=== PATIENT | female | born 1960 | race Hispanic/Latino ===

== ENCOUNTER 2023-11-16 10:51 | Inpatient (IN) | payer BC ==
[~2023-11-16] VITALS: Ht 157.5 cm; Wt 62.1 kg
[2023-11-16] MEDS: LIDOCAINE HCL 1% LOCAL INJ 20 ML VIAL INJ ONE (12:58)
[2023-11-16] MEDS: Morphine 4mg INJECTION 4 MG/ML INJ IV STA (12:59)
[2023-11-16] MEDS: SODIUM CHLORIDE 0.9% 1000ML 1,000 ML IV STA (12:59)
[2023-11-16] MEDS: ONDANSETRON HCL INJ 2MG/ML 2ML 2 MG/ML VIAL IV STA (12:59)
[2023-11-16 13:10] LABS: BASOPHILS % 0.4 % (0.0-1.0); EOSINOPHILS # (AUTO) 0.1 (0.0-0.4); EOSINOPHILS % 0.5 % (0.0-6.0); HEMATOCRIT 37.8 % (34.2-44.1); HEMOGLOBIN 13.3 g/dL (12.0-16.0); LYMPHOCYTES # (AUTO) 3.4 (1.0-3.2); LYMPHOCYTES % 35.3 % (18.0-39.1); MEAN CORPUSCULAR HEMOGLOBIN 31.4 pg (28-32); MEAN CORPUSCULAR HGB CONC 35.2 g/dL (31-35); MEAN CORPUSCULAR VOLUME 89.4 fL (81-99); MONOCYTES # (AUTO) 0.6 (0.2-0.8); MONOCYTES % 6.2 % (4.4-11.3); NEUTROPHILS # (AUTO) 5.5 (2.1-6.9); NEUTROPHILS % 57.4 % (38.7-80.0); PLATELET COUNT 289 x10e3/uL (140-360); RED BLOOD COUNT 4.23 x10e6/uL (3.6-5.1); RED CELL DISTRIBUTION WIDTH 11.9 % (11.7-14.4); WHITE BLOOD COUNT 9.55 x10e3/uL (4.8-10.8)
[2023-11-16 13:25] LABS: INR 0.96
[2023-11-16 13:26] LABS: PARTIAL THROMBOPLASTIN TIME 28.1 seconds (23.8-35.5)
[2023-11-16 13:35] LABS: ALBUMIN 3.8 g/dL (3.5-5.0); ALBUMIN/GLOBULIN RATIO 0.9 (0.8-2.0); ANION GAP 15.4 mmol/L (8-16); BILIRUBIN,TOTAL 0.5 mg/dL (0.2-1.2); CALCIUM 9.9 mg/dL (8.4-10.2); CREATININE, SERUM 0.63 mg/dL (0.57-1.11); MAGNESIUM 1.6 MG/DL (1.3-2.1); TOTAL PROTEIN 8.1 g/dL (6.5-8.1)
[2023-11-16 13:40] LABS: POTASSIUM 3.4 mmol/L (3.5-5.1)
[2023-11-16 15:26] LABS: BODY FLUID APPEARANCE CLOUDY; BODY FLUID COLOR YELLOW; BODY FLUID TYPE SYNOVIAL
[2023-11-16 15:34] LABS: RBC,BODY FLUID 1000 cells/uL; WBC,BODY FLUID 14562 cells/uL
[2023-11-16] MEDS: SODIUM CHLORIDE 0.9% 1000ML 1,000 ML IV SCH (16:11)
[2023-11-16 16:12] VITALS: BP 132/88; O2SAT 98
[2023-11-16 16:20] VITALS: BP 132/88; O2SAT 98
[2023-11-16 16:33] VITALS: BP 144/89; PULSE 95; RESP 18; TEMP 98.3; O2SAT 100
[2023-11-16 19:00] LABS: LYMPHOCYTES,BODY FLUID 1 %; MONO/MACROPHG,BODY FLUID 1 %; NEUTROPHILS,BODY FLUID 98 %; TOTAL CELLS COUNTED (DIFF) 100
[2023-11-16 20:19] VITALS: BP 128/74; PULSE 96; RESP 17; TEMP 98.6; O2SAT 100
[2023-11-16 23:51] VITALS: BP 128/74; PULSE 96; RESP 17; TEMP 98.6; O2SAT 100
[2023-11-17] VITALS (8 sets, daily range): BP systolic 119–138; BP diastolic 66–83; PULSE 84–91; RESP 16–18; TEMP 98.3–99.5; O2SAT 98–100
[2023-11-17] MEDS: Morphine 4mg INJECTION 4 MG/ML INJ IV PRN (01:01)
[2023-11-17] MEDS: ONDANSETRON HCL INJ 2MG/ML 2ML 2 MG/ML VIAL IV PRN (01:02)
[2023-11-17 07:14] LABS: BASOPHILS % 0.4 % (0.0-1.0); EOSINOPHILS % 0.4 % (0.0-6.0); HEMATOCRIT 35.5 % (34.2-44.1); HEMOGLOBIN 11.6 g/dL (12.0-16.0); LYMPHOCYTES # (AUTO) 2.7 (1.0-3.2); LYMPHOCYTES % 30.2 % (18.0-39.1); MEAN CORPUSCULAR HEMOGLOBIN 30.4 pg (28-32); MEAN CORPUSCULAR HGB CONC 32.7 g/dL (31-35); MEAN CORPUSCULAR VOLUME 93.2 fL (81-99); MONOCYTES # (AUTO) 0.7 (0.2-0.8); MONOCYTES % 8.3 % (4.4-11.3); NEUTROPHILS # (AUTO) 5.4 (2.1-6.9); NEUTROPHILS % 60.4 % (38.7-80.0); PLATELET COUNT 251 x10e3/uL (140-360); RED BLOOD COUNT 3.81 x10e6/uL (3.6-5.1)
[2023-11-17 07:54] LABS: ALBUMIN/GLOBULIN RATIO 0.9 (0.8-2.0); ANION GAP 11.9 mmol/L (8-16); BILIRUBIN,TOTAL 0.5 mg/dL (0.2-1.2); CALCIUM 8.5 mg/dL (8.4-10.2); CREATININE, SERUM 0.64 mg/dL (0.57-1.11); POTASSIUM 3.9 mmol/L (3.5-5.1); TOTAL PROTEIN 6.4 g/dL (6.5-8.1)
[2023-11-17] MEDS ORDERED: ATORVASTATIN CA10 MG PO (14:53)
[2023-11-17] MEDS ORDERED: ONDANSETRON HCL INJ 2MG/ML 2ML 2 MG/ML VIAL IV PRN (20:30)
[2023-11-17] MEDS ORDERED: ACETAMINOPHEN 325 MG TAB PO PRN (20:30)
[2023-11-17] MEDS ORDERED: METOPROLOL TARTRATE INJ 1 MG/ML VIAL IV PRN (20:30)
[2023-11-17] MEDS: ATORVASTATIN 10 MG TAB PO SCH (21:08)
[2023-11-17] MEDS: MAGNESIUM SULFATE 2GM/50ML 50 ML IV ONE (21:09)
[2023-11-18] VITALS (9 sets, daily range): BP systolic 123–139; BP diastolic 71–78; PULSE 75–97; RESP 16–20; TEMP 97.6–99.3; O2SAT 95–100
[2023-11-18 06:51] LABS: BASOPHILS % 0.4 % (0.0-1.0); EOSINOPHILS # (AUTO) 0.1 (0.0-0.4); EOSINOPHILS % 0.7 % (0.0-6.0); HEMATOCRIT 32.8 % (34.2-44.1); HEMOGLOBIN 11.4 g/dL (12.0-16.0); LYMPHOCYTES # (AUTO) 2.6 (1.0-3.2); LYMPHOCYTES % 31.3 % (18.0-39.1); MEAN CORPUSCULAR HEMOGLOBIN 31.5 pg (28-32); MEAN CORPUSCULAR HGB CONC 34.8 g/dL (31-35); MEAN CORPUSCULAR VOLUME 90.6 fL (81-99); MONOCYTES # (AUTO) 0.6 (0.2-0.8); MONOCYTES % 7.6 % (4.4-11.3); NEUTROPHILS # (AUTO) 4.9 (2.1-6.9); NEUTROPHILS % 59.8 % (38.7-80.0); PLATELET COUNT 251 x10e3/uL (140-360); RED BLOOD COUNT 3.62 x10e6/uL (3.6-5.1); RED CELL DISTRIBUTION WIDTH 11.8 % (11.7-14.4); WHITE BLOOD COUNT 8.18 x10e3/uL (4.8-10.8)
[2023-11-18 07:22] LABS: ANION GAP 13.6 mmol/L (8-16); CALCIUM 8.7 mg/dL (8.4-10.2); CHOL/HDL RATIO 4.8 (3.0-3.6); CREATININE, SERUM 0.63 mg/dL (0.57-1.11); MAGNESIUM 1.7 MG/DL (1.3-2.1); PHOSPHORUS 3.1 MG/DL (2.3-4.7); POTASSIUM 3.6 mmol/L (3.5-5.1)
[2023-11-18 07:34] LABS: FREE T4 (FREE THYROXINE) 1.08 ng/dL (0.8-1.8); THYROID STIMULATING HORMONE 1.853 uIU/mL (0.350-4.940)
[2023-11-18] MEDS: FAMOTIDINE 20 MG TAB PO SCH (08:03)
[2023-11-18] MEDS: DOCUSATE SODIUM 100 MG CAP PO SCH (08:03)
[2023-11-18] MEDS: BISACODYL 5 MG TAB EC PO ONE (16:43)
[2023-11-19] VITALS (10 sets, daily range): BP systolic 118–130; BP diastolic 74–80; PULSE 70–93; RESP 16–20; TEMP 98.5–99.1; O2SAT 96–100
[2023-11-19] MEDS: MAGNESIUM HYDROXIDE 30 ML UDC PO PRN (00:46)
[2023-11-19] MEDS: POLYETHYLENE GLYCOL 3350 17 GM PACK PO PRN (00:46)
[2023-11-20 00:33] VITALS: BP 134/83; PULSE 87; RESP 16; TEMP 98.6; O2SAT 99
[2023-11-20 04:00] VITALS: BP 122/69; PULSE 86; RESP 17; TEMP 98.3; O2SAT 98
[2023-11-20 07:43] VITALS: PULSE 82; RESP 20; O2SAT 96
[2023-11-20 09:21] VITALS: BP 111/77; PULSE 92; RESP 16; TEMP 98.6; O2SAT 98
[2023-11-20] MEDS ORDERED: ACETAMINOPHEN-1 EAC4 PO (11:40)
[2023-11-20] MEDS ORDERED: MILK OF MA400 MG/5 M PO (11:40)
[2023-11-20] MEDS ORDERED: DOCUSATE SODIU100 MG PO (11:40)
[2023-11-20] MEDS ORDERED: MIRALAX17 GM PO (11:40)
[2023-11-20] MEDS ORDERED: ONDANSETRON ODT4 MG PO (11:40)
[2023-11-20] MEDS ORDERED: ACETAMINOPHEN325 M1 PO (11:40)
[2023-11-20] MEDS ORDERED: ONDANSETRON HCL 4 MG ORAL DISINTEGRATING TAB PO PRN ×2 (11:45)
[2023-11-20 12:00] VITALS: BP 140/81; PULSE 88; RESP 19; TEMP 97.9; O2SAT 98
[2023-11-20 12:47] VITALS: BP 140/81; PULSE 88; RESP 19; TEMP 97.9; O2SAT 98
== END 2023-11-20 12:59 | disposition home or self-care (01) | DRG 566 ==
LOC: ER 11:04 → ERHOLD 14:59 → MED/SURG3 15:35
PROVIDERS: ADMIT Internal Medicine; ATTEND Internal Medicine
PROC: 0S9D3ZX Drainage of Left Knee Joint, Percutaneous Approach, Diagnostic (ICD-10-PCS; principal; 2023-11-16)
DX: M25.462 Effusion, left knee (principal); M17.12 Unilateral primary osteoarthritis, left knee; M06.9 Rheumatoid arthritis, unspecified; R26.2 Difficulty in walking, not elsewhere classified; M71.22 Synovial cyst of popliteal space [Baker], left knee; E78.5 Hyperlipidemia, unspecified; Z11.52 Encounter for screening for COVID-19; Z79.899 Other long term (current) drug therapy
CPT/HCPCS: 36415; 80048; 80053; 80061; 82945; 83036; 83735; 84100; 84439; 84443; 85025; 85610; 85651; 85730; 86140; 87040; 87070; 87205; 89051; 89060; 93971; 94799; 99284; J2001; J2270; J2405; J3475; J7030; U0002

== ENCOUNTER 2024-06-30 15:01 | Emergency (ER) | payer BC ==
[~2024-06-30] VITALS: Ht 157.5 cm; Wt 62.1 kg
[~2024-06-30 15:01] MED LIST: ACETAMINOPHEN-1 EAC4 PO; ACETAMINOPHEN325 M1 PO; ATORVASTATIN CA10 MG PO; DOCUSATE SODIU100 MG PO; MILK OF MA400 MG/5 M PO; MIRALAX17 GM PO; ONDANSETRON ODT4 MG PO
[2024-06-30 15:09] VITALS: TEMP 98.5
[2024-06-30] MEDS ORDERED: SODIUM CHLORIDE FLUSH 10 ML SYR IV PRN (15:15)
[2024-06-30 15:32] LABS: BASOPHILS # (AUTO) 0.1 (0.0-0.1); BASOPHILS % 0.8 % (0.0-1.0); EOSINOPHILS % 0.6 % (0.0-6.0); HEMATOCRIT 43.2 % (34.2-44.1); HEMOGLOBIN 13.7 g/dL (12.0-16.0); LYMPHOCYTES # (AUTO) 2.2 (1.0-3.2); MEAN CORPUSCULAR HEMOGLOBIN 30.4 pg (28-32); MEAN CORPUSCULAR HGB CONC 31.7 g/dL (31-35); MEAN CORPUSCULAR VOLUME 95.8 fL (81-99); MONOCYTES # (AUTO) 0.4 (0.2-0.8); MONOCYTES % 5.8 % (4.4-11.3); NEUTROPHILS # (AUTO) 3.8 (2.1-6.9); NEUTROPHILS % 58.5 % (38.7-80.0); PLATELET COUNT 244 x10e3/uL (140-360); RED BLOOD COUNT 4.51 x10e6/uL (3.6-5.1); RED CELL DISTRIBUTION WIDTH 11.9 % (11.7-14.4); WHITE BLOOD COUNT 6.41 x10e3/uL (4.8-10.8)
[2024-06-30 15:42] LABS: INR 0.86; PROTHROMBIN TIME 12.3 seconds (11.9-14.5)
[2024-06-30] MEDS ORDERED: ONDANSETRON HCL INJ 2MG/ML 2ML 2 MG/ML VIAL ONE (15:50)
[2024-06-30 15:51] LABS: ALANINE AMINOTRANSFERASE 31 IU/L (0-55); ALBUMIN/GLOBULIN RATIO 1.1 (0.8-2.0); ALKALINE PHOSPHATASE 105 IU/L (40-150); ANION GAP 14.5 mmol/L (8-16); BILIRUBIN,TOTAL 0.6 mg/dL (0.2-1.2); BLOOD UREA NITROGEN 12 mg/dL (7-26); BUN/CREATININE RATIO 18 (6-25); CALCIUM 9.9 mg/dL (8.4-10.2); CARBON DIOXIDE 25 mmol/L (22-29); CHLORIDE 105 mmol/L (98-107); CREATININE, SERUM 0.65 mg/dL (0.57-1.11); EST GLOMERULAR FILTRATION RATE 98 ML/MIN (>=60); GLUCOSE 123 mg/dL (74-118); POTASSIUM 3.5 mmol/L (3.5-5.1); SODIUM 141 mmol/L (136-145); TOTAL PROTEIN 7.5 g/dL (6.5-8.1)
[2024-06-30] MEDS: SODIUM CHLORIDE 0.9% 1000ML 1,000 ML IV ONE (15:53)
[2024-06-30] MEDS: MECLIZINE HCL 12.5 MG TAB PO ONE (15:54)
[2024-06-30] MEDS: ONDANSETRON HCL INJ 2MG/ML 2ML 2 MG/ML VIAL IV ONE (16:02)
[2024-06-30 16:30] VITALS: PULSE 86; RESP 18
[2024-06-30 16:40] LABS: TROPONIN I < 0.001 ng/mL (0-0.300)
[2024-06-30 16:44] LABS: BILIRUBIN,URINE NEGATIVE (NEGATIVE); CLARITY,URINE CLEAR (CLEAR); COLOR,URINE YELLOW (YELLOW); GLUCOSE, URINE NEGATIVE (NEGATIVE); LEUKOCYTE ESTERASE ,URINE TRACE (NEGATIVE); NITRITE,URINE NEGATIVE (NEGATIVE); PH,URINE 7 (5 - 7); PROTEIN,URINE DIPSTICK NEGATIVE (NEGATIVE); URINE UROBILINOGEN 0.2 mg/dL (0.2 - 1)
[2024-06-30 16:45] LABS: KETONES,URINE 2+ (NEGATIVE)
[2024-06-30 17:07] LABS: BACTERIA,URINE FEW /HPF; EPITHELIAL CELLS,URINE FEW /LPF
[2024-06-30] MEDS ORDERED: ONDANSETRON ODT4 MG PO (17:12)
[2024-06-30] MEDS ORDERED: MECLIZINE HCL25 MG PO (17:12)
[2024-06-30 17:21] VITALS: BP 129/67; PULSE 88; RESP 16; TEMP 97.9; O2SAT 99
== END 2024-06-30 17:20 | disposition home or self-care (01) ==
LOC: ER 15:11
DX: H81.10 Benign paroxysmal vertigo, unspecified ear (principal); E78.5 Hyperlipidemia, unspecified; M19.09 Primary osteoarthritis, other specified site; R94.31 Abnormal electrocardiogram [ECG] [EKG]
CPT/HCPCS: 36415; 70450; 71045; 80053; 81001; 83880; 84484; 85025; 85610; 85730; 87086; 93005; 94760; 99284; J2405; J7030; J8597